=== PATIENT | male | born 1950 | race Two or more races ===

== ENCOUNTER 2016-12-01 11:54 | Emergency (ER) | payer OTHER ==
[~2016-12-01] VITALS: Ht 182.9 cm; Wt 81.6 kg
--- NOTE | 2016-12-01 12:07 | NUR ---
L HIP PAIN X 1 MONTH, NON TRAUMATIC
--- NOTE | 2016-12-01 12:34 | NUR ---
PT BACK FROM CT
--- NOTE | 2016-12-01 13:46 | NUR ---
Patient discharged to home in stable condition. Written and verbal after care instructions given. Patient verbalizes understanding of instruction.
[2016-12-01 13:50] VITALS: BP 120/72
== END 2016-12-01 13:51 | disposition home or self-care (01) ==
LOC: ER 11:56
DX: M25.552 Pain in left hip (principal); G89.29 Other chronic pain; I10 Essential (primary) hypertension; Z87.891 Personal history of nicotine dependence; Z91.02 Food additives allergy status
CPT/HCPCS: 72128-TC; 72131-TC; 73502; 82962-TC; A4606; Z7610